=== PATIENT | female | born 1990 | race Caucasian/White ===

== ENCOUNTER 2022-06-19 16:58 | Emergency (ER) | payer SELFPAY ==
[~2022-06-19] VITALS: Ht 157.5 cm; Wt 70.8 kg
[2022-06-19 17:30] VITALS: BP 119/68
--- NOTE | 2022-06-19 17:37 | NUR ---
PATIENT LEFT WITHOUT BEING SEEN BY DR. DR LEE. NO FURTHER CARE PROVIDED FOR PATIENT.
== END 2022-06-19 17:36 | disposition left against medical advice (07) ==
LOC: MED 16:58
DX: R10.9 Unspecified abdominal pain (principal); Z53.21 Procedure and treatment not carried out due to patient leaving prior to being seen by health care provider